=== PATIENT | male | born 1985 | race Caucasian/White ===

== ENCOUNTER 2023-06-08 08:30 | Emergency (ER) | payer SELFPAY ==
[2023-06-08] MEDS ORDERED: Sodium Chloride 0.9% 10 ML Syringe FLUSH PRN (08:55)
[2023-06-08] MEDS ORDERED: Pantoprazole 40 MG Vial IVPUSH ONE (08:55)
[2023-06-08 09:12] LABS: BASOPHILS ABSOLUTE AUTO 0.09 K/uL (0.00-0.10); BASOPHILS PERCENT AUTO 1.5 % (0.1-1.3); EOSINOPHILS ABSOLUTE AUTO 0.41 K/uL (0.00-0.40); HEMATOCRIT 42.4 % (38.4-49.7); HEMOGLOBIN 14.6 g/dL (12.9-16.9); IMMATURE GRAN ABSOLUTE AUTO 0.03 K/uL (0.00-0.23); IMMATURE GRAN PERCENT AUTO 0.5 % (0.0-0.7); LYMPHOCYTES ABSOLUTE AUTO 1.54 K/uL (0.8-3.3); LYMPHOCYTES PERCENT AUTO 26.4 % (11.4-47.7); MEAN CORPUSCULAR HEMOGLOBIN 29.6 pg (31.6-35.5); MEAN CORPUSCULAR HGB CONC 34.4 g/dL (31.6-35.5); MONOCYTES ABSOLUTE AUTO 0.37 K/uL (0.20-0.90); MONOCYTES PERCENT AUTO 6.3 % (3.3-12.6); NEUTROPHILS PERCENT AUTO 58.3 % (40.0-78.1); PLATELET COUNT,PLT 253 K/uL (130-375); RED BLOOD CELL COUNT 4.93 M/uL (4.14-5.76); WHITE BLOOD CELL COUNT,WBC 5.8 K/uL (3.2-11.0)
[2023-06-08 09:32] LABS: PROTHROMBIN TIME 10.2 sec (9.2-10.6); PTT,PARTIAL THROMBOPLSTIN TIME 26.9 sec (21.8-27.3)
[2023-06-08 09:33] LABS: A/G RATIO 1.3 (1.2-2.2); ALANINE AMINOTRANSFERASE,ALT 32 U/L (12-78); ALKALINE PHOSPHATASE 59 U/L (46-116); ASPARTATE AMNIOTRANSFERASE,AST 18 U/L (15-37); BILIRUBIN TOTAL 0.5 mg/dL (0.2-1.0); BLOOD UREA NITROGEN,BUN 18 mg/dL (7-18); CALCIUM 8.8 mg/dL (8.5-10.1); CARBON DIOXIDE,CO2 27 mmol/L (21-32); CHLORIDE,CL 103 mmol/L (100-108); EST CRCL DRUG DOSING (CG) 107.07 mL/min; ESTIMATED GFR 99 mL/min (>60); GLUCOSE RANDOM 86 mg/dL (74-106); POTASSIUM,K 4.5 mmol/L (3.6-5.2); PROTEIN TOTAL,TP 7.1 g/dL (6.4-8.2); SODIUM,NA 135 mmol/L (140-148)
[2023-06-08 09:37] LABS: ANION GAP 9.5 mmol/L (5.0-14.0)
== END 2023-06-08 10:24 | disposition home or self-care (01) ==
LOC: JP.ED 08:30
DX: K92.0 Hematemesis (principal); F12.90 Cannabis use, unspecified, uncomplicated
CPT/HCPCS: 36415; 80053; 83690; 85025; 85610; 85730; 86850; 86900; 86901; 96374; 99284; C9113; J3490

== ENCOUNTER 2023-06-09 08:03 | Day surgery (SDC) | payer MEDICAID ==
[2023-06-09] MEDS ORDERED: Propofol 200 MG/20 ML SDV ONE (08:17)
[2023-06-09] MEDS ORDERED: fentaNYL 50 MCG/ML SDV ONE (08:17)
[2023-06-09] MEDS ORDERED: Midazolam 1 MG/ML 2 ML SDV ONE (08:17)
[2023-06-09] MEDS ORDERED: Lactated Ringers 1,000 ML IV SCH (08:30)
== END 2023-06-09 10:15 | disposition home or self-care (01) ==
LOC: JP.SDS 08:03
PROVIDERS: ATTEND Student in an Organized Health Care Education/Training Program
DX: K29.50 Unspecified chronic gastritis without bleeding (principal); F17.200 Nicotine dependence, unspecified, uncomplicated
CPT/HCPCS: 43239; 88305; J2250; J2704; J3010; J7120